=== PATIENT | female | born 1980 | race Caucasian/White ===

== ENCOUNTER 2018-07-14 15:13 | Outpatient (CLI) | payer BC ==
--- NOTE | 2018-07-14 18:14 | ULT ---
ULTRASOUND RETROPERITONEUM COMPLETE: (RENAL) HISTORY: Microhematuria in a 38-year-old female. FINDINGS: Because of body habitus, detailed visualization of the left kidney is limited. The right kidney david ures 9 x 5.5 x 5 cm. The left kidney measures 10.5 x 7 x 5.5 cm. Both kidneys have normal cortical thickness and normal cortical echogenicity. No large cystic or solid renal lesion is identified. Th ere is no hydronephrosis. Cursory images of the urinary bladder demonstrate no gross abnormality. IMPRESSION: No pathology identified. jn [] POS: [facility]
== END 2018-07-14 15:14 | disposition home or self-care (01) ==
LOC: BICULT 15:13
PROVIDERS: ATTEND Family Medicine
DX: R31.29 Other microscopic hematuria (principal)
CPT/HCPCS: 76770

== ENCOUNTER 2024-01-24 08:22 | Outpatient (CLI) | payer BC | END 2024-01-24 08:23 | disposition home or self-care (01) | LOC: BICRAD 08:22 | PROVIDERS: ATTEND Nurse Practitioner Family | DX: R31.9 Hematuria, unspecified (principal) | CPT/HCPCS: 74018 ==